=== PATIENT | female | born 1950 | race Caucasian/White ===

== ENCOUNTER 2023-03-23 08:50 | Day surgery (SDC) | payer MEDICARE ==
[2023-03-23] VITALS (27 sets, daily range): BP systolic 38–149; BP diastolic 23–89
[~2023-03-23] VITALS: Ht 152.4 cm; Wt 69.5 kg
[~2023-03-23 08:50] MED LIST: DIAZ10 PO
--- NOTE | 2023-03-23 11:07 | NUR ---
03/23/23 1107 Nicole Márquez HISTORY, CHART, MEDICATIONS AND ALLERGIES REVIEWED BEFORE START OF PROCEDURE. PATIENT CONFIRMS NPO STATUS AND AGREES WITH SCHEDULED PROCEDURE. 3-LEAD EKG REVIEWED WITH PHYSICIAN PRIOR TO START OF PROCEDURE. MONITOR INTACT WITH CONTINUOUS PULSE OXIMETRY,CAPNOGRAPHY, 3-LEAD EKG, INTERMITTENT BP. SUPPLEMENTAL O2 TO BE TITRATED THROUGHOUT PROCEDURE TO MAINTAIN O2 SATURATION ABOVE 90%. PATIENT DETERMINED TO BE ASA APPROPRIATE FOR PROPOFOL SEDATION PRIOR TO START OF PROCEDURE BY .
--- NOTE | 2023-03-23 11:56 | NUR ---
PT TO DAY SURGERY STEP DOWN FROM COLONOSCOPY AND EGD. PT IS AWAKE, ALERT AND ORIENTED; ABLE TO MOVE SELF IN BED. PT HAS NO COMPLAINTS. VSS.
--- NOTE | 2023-03-23 12:07 | NUR ---
PO FLUIDS AND CRACKERS GIVEN. PT RIDE AT BEDSIDE. Discharge instructions reviewed with patient. Patient verbalizes understanding. Copy given to patient to take home.
--- NOTE | 2023-03-23 12:18 | NUR ---
Discharge instructions reviewed with patient. Patient verbalizes understanding. Copy given to patient to take home.
--- NOTE | 2023-03-23 12:26 | NUR ---
Patient up to Ambulate independently. Gait steady.
--- NOTE | 2023-03-23 12:36 | NUR ---
Discharged via wheelchair to private car for ride home.
== END 2023-03-23 12:37 | disposition home or self-care (01) ==
LOC: ORSCMMR 08:50 → ORD 10:00 → ORSCMMR 10:00
PROVIDERS: Internal Medicine Gastroenterology
PROC: 0DJD8ZZ Inspection of Lower Intestinal Tract, Via Natural or Artificial Opening Endoscopic (ICD-10-PCS; principal; 2023-03-23 10:00)
PROC: 0DB78ZX Excision of Stomach, Pylorus, Via Natural or Artificial Opening Endoscopic, Diagnostic (ICD-10-PCS; principal; 2023-03-23 10:00)
PROC: 0DB98ZX Excision of Duodenum, Via Natural or Artificial Opening Endoscopic, Diagnostic (ICD-10-PCS; principal; 2023-03-23 10:00)
DX: D46.4 Refractory anemia, unspecified (principal); K29.80 Duodenitis without bleeding; K44.9 Diaphragmatic hernia without obstruction or gangrene; Z79.899 Other long term (current) drug therapy
CPT/HCPCS: 88305; 88342; A9270; J2704; J7120